=== PATIENT | female | born 1980 | race Caucasian/White ===

== ENCOUNTER 2018-01-01 07:08 | Inpatient (IN) | payer OTHER ==
[~2018-01-01] VITALS: Ht 175.3 cm; Wt 68.0 kg
[2018-01-01 07:13] VITALS: BP 129/78
--- NOTE | 2018-01-01 07:24 | NUR ---
PT AMBULATED TO BED 3
--- NOTE | 2018-01-01 07:25 | NUR ---
37/F BIB C/O FEELING REALLY TIRED X 3 WEEKS. PT STATES SHE SOMETIMES CAN'T EVEN GET OUT OF BED, SHE GET TIRED OF WALKING OUT OF THE CAR TO THE HOUSE. PT ALSO REPORTED CHEST DYSCOMFORT X 3 WEEKS. DENIES MED HX. PT TOOK TYLENOL LAST NIGHT. DENIES N/V/D; SKIN IS PINK/WARM/DRY; AAOX4 WITH EVEN AND STEADY GAIT; LUNGS CLEAR BL; HR TACHY 117/MINS AT THIS TIME. PT DENIES ANY FEVER, CP, SOB, OR COUGH AT THIS TIME; PATIENT STATES PAIN OF 0/10 AT THIS TIME. PATIENT POSITIONED FOR COMFORT; HOB ELEVATED; BEDRAILS UP X2; BED DOWN. ER MD MADE AWARE OF PT STATUS.
--- NOTE | 2018-01-01 07:44 | NUR ---
Patient being evaluated by DR MCKENZIE at bedside.
[2018-01-01] MEDS ORDERED: NACL 0.9% 1,000 ML IV ONE (07:50)
[2018-01-01] MEDS ORDERED: LORazepam 2 MG/ML VIAL IVP ONE (07:50)
[2018-01-01 08:08] LABS: BASOPHILS % (AUTO) 0.6 % (0.0-2.0); EOSINOPHILS % (AUTO) 0.3 % (0.0-4.0); HEMATOCRIT 23.4 % (36-48); LYMPHOCYTES # (AUTO) 0.6 K/uL (2.5-16.5); LYMPHOCYTES % (AUTO) 12.2 % (20.5-51.1); MEAN CORPUSCULAR HEMOGLOBIN 20 pg (27-31); MEAN CORPUSCULAR HGB CONC 30 g/dL (33-37); MEAN CORPUSCULAR VOLUME 67.9 fL (80-94); MONOCYTES # (AUTO) 0.7 K/uL (0.8-1.0); MONOCYTES % (AUTO) 13.8 % (1.7-9.3); NEUTROPHILS # (AUTO) 3.5 K/uL (1.8-7.7); NEUTROPHILS % (AUTO) 73.1 % (42.2-75.2); PLATELET COUNT (AUTO) 234 K/uL (140-450); RED BLOOD CELL COUNT(AUTO) 3.45 MIL/uL (4.20-5.40); WHITE BLOOD COUNT (AUTO) 4.7 K/uL (4.8-10.8)
[2018-01-01 08:21] LABS: BARBITURATE, URINE NEG. ng/ml (NEG <=200); BENZODIAZEPINE, URINE NEG. ng/mL (NEG <=200); CANNABINOID, URINE NEG. ng/mL (NEG <=50); COCAINE, URINE NEG. ng/mL (NEG <=300); OPIATE, URINE NEG. ng/mL (NEG <=2000); PHENCYCLIDINE SCREEN,URINE NEG. ng/mL (NEG <=25)
--- NOTE | 2018-01-01 08:29 | NUR ---
Emerita holm in [facility] - 01/01/18 at 0831 by MED1 LAB AT BEDSIDE.
--- NOTE | 2018-01-01 08:31 | NUR ---
X RAY AT BEDSIDE.
[2018-01-01 08:37] LABS: ANION GAP 15.2 (8-16); CARBON DIOXIDE 25.8 mmol/L (21-32); CHLORIDE 103 mmol/L (98-107); CREATININE 0.8 mg/dL (0.6-1.3); GFR ARICAN-AMERICAN 104 mL/min (>90); GLUCOSE 95 mg/dL (74-106); SODIUM SERUM 140 mmol/L (136-145); UREA NITROGEN, BLOOD 9 mg/dL (7-18)
[2018-01-01 08:51] LABS: ALBUMIN 3.5 g/dL (3.4-5.0); ASPARTATE AMINOTRANSFERASE 26 U/L (15-37); SALICYLATE 3.9 mg/dL (2.8-20.0); THYROID STIMULATING HORMONE 0.68 uIU/mL (0.34-3.74); TOTAL BILIRUBIN 0.2 mg/dL (0.0-1.0)
--- NOTE | 2018-01-01 08:52 | NUR ---
Patient appears to be SLEEPING comfortably in bed. Vital Signs within normal limits. Respirations even and unlabored.WILL CONTINUE TO MONITOR.
[2018-01-01 08:54] LABS: ACETAMINOPHEN < 0.5 ug/ml (10-30)
[2018-01-01] MEDS ORDERED: NACL 0.9% 1,000 ML IV SCH (09:33)
[2018-01-01] MEDS ORDERED: ACETAMINOPHEN 325 MG TAB PO PRN (09:35)
[2018-01-01] MEDS ORDERED: LORazepam 2 MG/ML VIAL IVP PRN (09:35)
[2018-01-01] MEDS ORDERED: ONDANSETRON 4 MG/2 ML VIAL IVP PRN (09:35)
--- NOTE | 2018-01-01 10:05 | NUR ---
RECEIVED REPORT ABOUT THE PT FROM CHARGE NURSE, RIOS, PT IS ON THE BED ASLEEP WITH A RT AC G. 20 ON SALINE LOCK , RESPIRATION EVEN AND NO SOB NOTED. VITAL SIGNS TAKEN AND IS WITHIN NORMAL LIMITS, SIDE RAILS ARE UP AND CALL LIGHT WITHIN REACH .WILL CONTINUE TO MONITOR PT.
--- NOTE | 2018-01-01 10:15 | NUR ---
Patient will be admitted to care of DR ANDRADE. Admited to MS. Will go to room 104B. Belongings list completed. Report to RIOS DREW
--- NOTE | 2018-01-01 10:54 | NUR ---
MRSA SWAB WAS DONE TO PT AND SAMPLE WAS SENT TO LAB.
--- NOTE | 2018-01-01 11:00 | NUR ---
PT'S IV FLUID WAS STARTED WITH NS AT 80ML/HR, INFUSING AT THE RT AC, INTACT AND PATENT. WILL MONITOR PT.
--- NOTE | 2018-01-01 12:00 | NUR ---
PT IS AWAKE AND IS HAVING HER LUNCH, NO SIGN OF DISTRESS NOTED. WILL MONITOR PT.
[2018-01-01] MEDS ORDERED: SODIUM FERRIC GLUCONATE 125 MG in NACL 0.9% 100 ML IV SCH (14:00)
--- NOTE | 2018-01-01 14:00 | NUR ---
ENDORSEMENT WAS RECEIVED FROM CAMPOS. PATIENT IS STABLE AT THIS TIME
--- NOTE | 2018-01-01 14:00 | NUR ---
PATIENT WAS AWAKE, ALERT. RESPIRATION EVEN, UNLABOR ON ROOM AIR. DENIED PAIN, SOB. NO DISTRESS NOTED AT THIS TIME. BLOOD TRANSFUSION WAS ORDERED BY DR. ANDRADE. CONSENT WAS OBTAINED AT BEDSIDE. PATIENT VERBALIZED UNDERSTANDING
--- NOTE | 2018-01-01 14:00 | NUR ---
ENDORSED PT TO AM NURSEJARAD FOR CONTINUITY OF CARE, PT IS STABLE AND AWAKE AT THIS BETH E.
--- NOTE | 2018-01-01 15:29 | NUR ---
BLOOD TRANSFUSION WAS STARTED PER ORDER. VS IS STABLE AT THIS TIME
[2018-01-01 16:00] VITALS: BP 138/86
--- NOTE | 2018-01-01 16:30 | NUR ---
PATIENT REQUESTED TO LEAVE AMA, STATED SHE NEEDS TO GO HOME WITH HER KID AND WILL COME BACK TO ER TOMORROW. EXPLAINED TO PATIENT THE RISK OF LEAVING AMA. PATIENT VERBALIZED UNDERSTANDING. AMA FORM WAS SIGNED. DR. ANDRADE WAS MADE AWARE
--- NOTE | 2018-01-01 16:50 | NUR ---
PATIENT REMOVED HER IV, AND LEFT THE UNIT. BLOOD TRANSFUSION WAS INCOMPLETE.
[2018-01-01] MEDS ORDERED: FERROUS SULFATE 325 MG TABEC PO SCH (17:00)
== END 2018-01-01 16:50 | disposition left against medical advice (07) | DRG 663 ==
LOC: MED 07:08 → MTU 09:53
PROVIDERS: ADMIT Hospitalist; ATTEND Hospitalist
DX: D64.9 Anemia, unspecified (principal); E61.1 Iron deficiency; F15.90 Other stimulant use, unspecified, uncomplicated; N92.0 Excessive and frequent menstruation with regular cycle; Z88.5 Allergy status to narcotic agent; Z88.2 Allergy status to sulfonamides; Z53.21 Procedure and treatment not carried out due to patient leaving prior to being seen by health care provider
CPT/HCPCS: 36415; 71045; 80053; 80305; 83540; 83880; 84443; 84484; 85025; 86886; 86900; 86901; 86920; 87081; 96361; 96374; 99285; G0480; G0482; J2060; J2405; J2916; J7030; Q0092

== ENCOUNTER 2018-05-20 13:46 | Observation (INO) | payer OTHER ==
[~2018-05-20] VITALS: Ht 175.3 cm; Wt 75.4 kg
[2018-05-20 14:15] VITALS: BP 170/105
--- NOTE | 2018-05-20 14:26 | NUR ---
AFTER PROVIDING URINE SPECIMEN, PT AMBULATES BACK TO THE LOBBY
--- NOTE | 2018-05-20 15:01 | NUR ---
PT TO ER BED 3
--- NOTE | 2018-05-20 15:02 | NUR ---
BIB SELF WITH SOB ON AMBULATION/EXERTION OVER 2 MONTHS WORSE YESTERDAY. PER PT HAVE EXTENDED MENSES RECENT LMP 04/2018 FOR 12 DAYS. PT WORK WITH DOGS WAS DX WITH ANEMIA ON 11/01/17 Addendum: 05/20/18 at 1753 by [email or web address] HOME MED: NONE
--- NOTE | 2018-05-20 15:02 | NUR ---
Note alta in EDM - 05/20/18 at 1712 by [facility] B SELF WITH SOB ON AMBULATION/EXERTION OVER 2 MONTHS WORSE YESTERDAY. PER PT HAVE EXTENDED MENSES RECENT LMP 04/2018 FOR 12 DAYS. 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
--- NOTE | 2018-05-20 15:58 | NUR ---
Patient appears to be SLEEPING comfortably in bed. Vital Signs within normal limits. Respirations even and unlabored.
--- NOTE | 2018-05-20 16:49 | NUR ---
LAB AT BEDSIDE
--- NOTE | 2018-05-20 16:50 | NUR ---
US AT BEDSIDE
[2018-05-20 17:05] LABS: BASOPHILS # (AUTO) 0.1 K/uL (0.00-0.22); EOSINOPHILS # (AUTO) 0.3 K/uL (0-0.4); LYMPHOCYTES # (AUTO) 1.4 K/uL (2.5-16.5); LYMPHOCYTES % (AUTO) 23.8 % (20.5-51.1); MEAN CORPUSCULAR HEMOGLOBIN 20 pg (27-31); MEAN CORPUSCULAR HGB CONC 30 g/dL (33-37); MEAN CORPUSCULAR VOLUME 66.1 fL (80-94); MONOCYTES # (AUTO) 0.4 K/uL (0.8-1.0); MONOCYTES % (AUTO) 7.2 % (1.7-9.3); NEUTROPHILS # (AUTO) 3.7 K/uL (1.8-7.7); PLATELET COUNT (AUTO) 306 K/uL (140-450); RED BLOOD CELL COUNT(AUTO) 2.87 MIL/uL (4.20-5.40); RED CELL DISTRIBUTION WIDTH 17.7 % (11.6-13.7); WHITE BLOOD COUNT (AUTO) 5.8 K/uL (4.8-10.8)
[2018-05-20 17:07] LABS: HEMOGLOBIN 5.6 g/dL (12.0-16.0)
[2018-05-20 17:17] LABS: ANION GAP 10.8 (8-16); CARBON DIOXIDE 27.1 mmol/L (21-32); CREATININE 0.7 mg/dL (0.6-1.3); POTASSIUM 3.9 mmol/L (3.5-5.1)
[2018-05-20 17:23] LABS: ALBUMIN 3.3 g/dL (3.4-5.0); TOTAL BILIRUBIN 0.2 mg/dL (0.0-1.0)
--- NOTE | 2018-05-20 18:30 | NUR ---
Pt arrived to room 119A from ER via gurney. Able to amb from gurney to bed with steady gait. Received report from [facility] ER nurse. Pt aaox4, well-groomed, well-nourished, no c/o discomfort at this time. Right ac iv intact & asymptomatic, flushed with NS 10ml. Pt oriented to room & unit, verbalize understanding & return demonstrate. Call light within reach.
--- NOTE | 2018-05-20 18:30 | NUR ---
Patient will be admitted to care of DR DR CODY. Admited to TELE. Will go to room 119A. Belongings list completed. Report to HERB SANTOYO.
[2018-05-20] MEDS ORDERED: ACETAMINOPHEN 325 MG TAB PO PRN (19:00)
[2018-05-20] MEDS ORDERED: ONDANSETRON 4 MG/2 ML VIAL IVP PRN (19:00)
--- NOTE | 2018-05-20 19:15 | NUR ---
Report given to pm nurse Laxmi.
--- NOTE | 2018-05-20 19:16 | NUR ---
RECEIVED BEDSIDE REPORT FROM DAY SHIFT NURSE HERB RN, PT STABLE, NO DISTRESS NOTED, IV TO R AC 18G PATENT, INTACT, SL, PT ON ROOM AIR, NO SOB, MRSA SWAB TAKEN, V/S STABLE, INITIAL ASSESSMENT DONE, ALL SAFETY PRECAUTION MET, CALL LIGHT WITHIN REACH, WILL CONTINUE TO MONITOR.
[2018-05-20 20:00] VITALS: BP 124/69
--- NOTE | 2018-05-20 20:20 | NUR ---
BLOOD TRANSFUSION STARTED, PT IN STABLE CONDITION, NO DISTRESS NOTED, TOLERATED WELL, WILL CONTINUE TO MONITOR.
--- NOTE | 2018-05-20 20:30 | NUR ---
TALKED TO DR. XIONG REGARDING PT REQUESTING SLEEPING MEDICATION, STATED TO ORDER AMBIEN 5MG PO PRN INSOMNIA HS, WILL PUT IN ORDER AND CONTINUE WITH ORDERS.
[2018-05-20] MEDS ORDERED: ZOLPIDEM 5 MG TAB PO PRN (20:50)
--- NOTE | 2018-05-20 23:20 | NUR ---
FIRST UNIT BLOOD TRANSFUSION COMPLETED, PT TOLERATED WELL, NO DISTRESS NOTED, CALL LIGHT WITHIN REACH, WILL CONTINUE TO MONITOR.
--- NOTE | 2018-05-20 23:50 | NUR ---
SECOND UNIT BLOOD STARTED, PT TOLERATED WELL, NO DISTRESS NOTED, CALL LIGHT WITHIN REACH, WILL CONTINUE TO MONITOR.
[2018-05-21] VITALS: BP 131/85
--- NOTE | 2018-05-21 02:50 | NUR ---
BLOOD TRANSFUSION COMPLETED, PT TOLERATED WELL, NO DISTRESS NOTED, CALL LIGHT WITHIN REACH WILL CONTINUE TO MONITOR.
[2018-05-21 04:00] VITALS: BP 131/82
--- NOTE | 2018-05-21 04:10 | NUR ---
CHECKED ON PT, PT AWAKE, AMBULATED TO RESTROOM AND BACK TO BED, V/S TAKEN, WITHIN PT BASELINE, LEFT RESTING, NO DISTRESS NOTED, CALL LIGHT WITHIN REACH, WILL CONTINUE TO MONITOR.
--- NOTE | 2018-05-21 05:30 | NUR ---
PT STATED FEELING BETTER, AND WANTS TO GO HOME, PT TALKED TO DATACAP DEVELOPER IZZY, AND STATED SHE WANTS TO GO HOME RIGHT NOW.
--- NOTE | 2018-05-21 05:35 | NUR ---
TALKED TO DR. PEREZ REGARDING PT IS SIGNING AMA, STATED UNDERSTANDING.
--- NOTE | 2018-05-21 05:35 | NUR ---
PT LEFT UNIT IN STABLE CONDITION, NO DISTRESS NOTED, IV TAKEN OUT CATH INTACT, WRIST BANDS TAKEN OFF, EXPLAINED TO PT REGARDING RISK OF LEAVING AMA, PT STATED UNDERSTANDING. Addendum: 05/21/18 at 0544 by Laxmi Joya RN ALL BELONGINGS WITH PT.
[2018-05-21 06:21] LABS: BASOPHILS % (AUTO) 0.5 % (0.0-2.0); EOSINOPHILS # (AUTO) 0.4 K/uL (0-0.4); HEMATOCRIT 26.9 % (36-48); HEMOGLOBIN 8.5 g/dL (12.0-16.0); LYMPHOCYTES # (AUTO) 1.4 K/uL (2.5-16.5); LYMPHOCYTES % (AUTO) 19.6 % (20.5-51.1); MEAN CORPUSCULAR HEMOGLOBIN 23 pg (27-31); MEAN CORPUSCULAR HGB CONC 32 g/dL (33-37); MEAN CORPUSCULAR VOLUME 71.7 fL (80-94); MONOCYTES # (AUTO) 0.7 K/uL (0.8-1.0); MONOCYTES % (AUTO) 9.9 % (1.7-9.3); NEUTROPHILS # (AUTO) 4.7 K/uL (1.8-7.7); PLATELET COUNT (AUTO) 293 K/uL (140-450); RED BLOOD CELL COUNT(AUTO) 3.75 MIL/uL (4.20-5.40); RED CELL DISTRIBUTION WIDTH 21.3 % (11.6-13.7); WHITE BLOOD COUNT (AUTO) 7.3 K/uL (4.8-10.8)
[2018-05-21 06:23] LABS: ALBUMIN 3.2 g/dL (3.4-5.0); ANION GAP 12.2 (8-16); CARBON DIOXIDE 28.2 mmol/L (21-32); CREATININE 0.7 mg/dL (0.6-1.3); POTASSIUM 4.4 mmol/L (3.5-5.1); TOTAL BILIRUBIN 0.3 mg/dL (0.0-1.0)
== END 2018-05-21 05:36 | disposition left against medical advice (07) ==
LOC: MED 13:46 → MTU 17:40 → INTOOBSV 17:40
PROVIDERS: ADMIT Internal Medicine; ATTEND Internal Medicine
DX: D50.0 Iron deficiency anemia secondary to blood loss (chronic) (principal); N92.0 Excessive and frequent menstruation with regular cycle; D25.9 Leiomyoma of uterus, unspecified
CPT/HCPCS: 36415; 76830; 80053; 84702; 85025; 85610; 86886; 86900; 86901; 86920; 87081; 99284; G0378; J7030; P9016; Q0092

== ENCOUNTER 2018-06-05 14:48 | Inpatient (IN) | payer OTHER ==
[~2018-06-05] VITALS: Ht 175.3 cm; Wt 65.8 kg
[2018-06-05 14:57] VITALS: BP 118/78
--- NOTE | 2018-06-05 15:00 | NUR ---
BIB BOYFRIEND. AAOX4. C/O VAGINAL BLEEDING X5 DAYS. PT REPORTS LARGE CLOTS. PT REPORTS GOING THROUGH 1 PAD Q30 MIN. PT REPORTS PAIN WHEN CLOTS COME. PT REPORTS CRAMPING LLQ ABD PAIN AT 6/10. PT REPORTS FATIGUE, DIZZINESS AND SOB. DENIES N/V/D OR FEVER. PT REPORTS GETTING BLOOD TRANSFUSION AT [facility] LAST MONTH. HOB UP. BED SIDE RAILS UP X1. ON LOW BED POSITION, LOCKED. ER MADE AWARE OF PT STATUS.
[2018-06-05 15:31] LABS: BASOPHILS % (AUTO) 0.4 % (0.0-2.0); EOSINOPHILS # (AUTO) 0.2 K/uL (0-0.4); EOSINOPHILS % (AUTO) 2.5 % (0.0-4.0); LYMPHOCYTES # (AUTO) 1.4 K/uL (2.5-16.5); MEAN CORPUSCULAR HEMOGLOBIN 23 pg (27-31); MEAN CORPUSCULAR HGB CONC 31 g/dL (33-37); MEAN CORPUSCULAR VOLUME 72.3 fL (80-94); MONOCYTES # (AUTO) 0.7 K/uL (0.8-1.0); NEUTROPHILS # (AUTO) 3.9 K/uL (1.8-7.7); NEUTROPHILS % (AUTO) 63.1 % (42.2-75.2); PLATELET COUNT (AUTO) 325 K/uL (140-450); RED BLOOD CELL COUNT(AUTO) 2.76 MIL/uL (4.20-5.40); RED CELL DISTRIBUTION WIDTH 23.9 % (11.6-13.7); WHITE BLOOD COUNT (AUTO) 6.1 K/uL (4.8-10.8)
[2018-06-05 15:36] LABS: HEMOGLOBIN 6.2 g/dL (12.0-16.0)
[2018-06-05 15:37] LABS: APPEARANCE,URINE SL CLOUDY (CLEAR); BILIRUBIN,URINE NEGATIVE (NEGATIVE); BLOOD, URINE 3+ (NEGATIVE); COLOR,URINE RED (YELLOW); LEUKOCYTE ESTERASE ,URINE TRACE (NEGATIVE); NITRITE, URINE POSITIVE (NEGATIVE); UGLUCOSE NEGATIVE (NEGATIVE)
--- NOTE | 2018-06-05 15:38 | NUR ---
CRITICAL LAB VALUE: HGB: 6.2, HCT: 20 FROM NESTOR, JUSTOWRITER OPERATOR. DR COLLIER NOTIFIED.
--- NOTE | 2018-06-05 15:40 | NUR ---
DR COLLIER AT BEDSIDE FOR PT EVALUATION
[2018-06-05 15:44] LABS: RBC,URINE TOO NUMEROUS TO COUN /HPF (0-5)
[2018-06-05 15:45] LABS: WBC,URINE 0-5 /HPF (0-5)
[2018-06-05 16:03] LABS: PROTHROMBIN TIME 9.7 secs (10.8-13.4)
[2018-06-05] MEDS ORDERED: LORazepam 2 MG/ML VIAL IVP PRN (16:05)
[2018-06-05] MEDS ORDERED: ALBUTEROL 0.083% 2.5 MG/3 ML NEBU IH PRN (16:05)
--- NOTE | 2018-06-05 16:35 | NUR ---
RECEIVED REPORT FROM MELANIE SIMPSON RN. PT IS AAOX4, AMBULATORY WITH RIGHT AC 20G. PT ON RA. SKIN INTACT. PT COMPLAINING OF HEAVY VAGINAL BLEEDING FROM MENSTRUAL PERIOD. AWAITING PACKED RBC'S FOR BLOOD TRANSFUSION. NO OTHER COMPLAINTS AT THIS TIME. PT IN STABLE CONDITION. MRSA SWAB TAKEN. PT ORIENTED TO UNIT AND ROOM. CALL LIGHT WITHIN REACH. BED IN LOW POSITION. WILL CONTINUE TO MONITOR PT FREQUENTLY.
--- NOTE | 2018-06-05 16:35 | NUR ---
Patient will be admitted to care of Dr Palacio. Admited to Med Surg. Will go to room 104 A. Belongings list completed. Report to YARELIS Diamond.
--- NOTE | 2018-06-05 18:10 | NUR ---
BLOOD TRANSFUSION STARTED ON PT. PT VITAL SIGNS FOLLOWS:TEMP-98.2, HR-103, BP-113/64, RR-16, O2 SAT-99%. NO COMPLAINTS OF PAIN AT THIS TIME. WILL REMAIN AT PT BEDSIDE FOR 3OMINS-1HR.
--- NOTE | 2018-06-05 19:28 | NUR ---
ENDORSED PT TO SLABBER LIGHT FOR CONTINUITY OF CARE. PT IN STABLE CONDITION.
--- NOTE | 2018-06-05 19:29 | NUR ---
RECEIVED PATIENT FROM DAY SHIFT NURSE AT BEDSIDE. PATIENT IS STABLE CONDITION. CURRENTLY RECEIVING BLOOD TRANSFUSION SINCE 1809. NO C/O PAIN, NO SOB, NO FEVER NOTED. AAOX4. IV 20G ON R AC AND SITE INTACT, PATENT, AND FLUSH WELL. SKIN INTACT. NO OPEN WOUND. BED IN LOW POSITION. CALL LIGHT WITHIN REACH. ALL NEED ARE MET AT THIS TIME. WILL CONTINUE TO MONITOR.
[2018-06-05 20:00] VITALS: BP 128/74
[2018-06-05] MEDS ORDERED: IBUPROFEN 800 MG TAB PO PRN (20:10)
--- NOTE | 2018-06-05 20:22 | NUR ---
PT C/O ABD PAIN 07/29. IBUPROFEN GIVEN PO. PT TOLERATED WELL.
--- NOTE | 2018-06-05 21:07 | NUR ---
RECEIVED PATIENT ON ROOM AIR, PULSE OX SAT 97%. PATIENT DENIES ANY SHORTNESS OF BREATH. BREATH SOUNDS CLEAR. PRN BREATHING TREATMENT NOT GIVEN; HHN NOT INDICATED AT THIS TIME. NO RESPIRATORY DISTRESS NOTED AT THIS TIME. WILL CONTINUE TO MONITOR.
--- NOTE | 2018-06-05 21:30 | NUR ---
BLOOD TRANSFUSION 1 UNIT PRBC COMPLETED. PT STABLE CONDITION. NO S/S OF POST TRANSFUSION REACTION NOTED. PT CURRENTLY C/O 04/28 ABD PAIN. MEDICATION ALREADY GIVEN.
--- NOTE | 2018-06-05 21:55 | NUR ---
SET UP TUBING WITH NS FOR 2ND UNIT PRBC AND WILL WORKERS COMPENSATION LEGAL SECRETARY BLOOD.
--- NOTE | 2018-06-05 22:05 | NUR ---
STARTING 2ND UNIT OF BLOOD 2 NURSES VERIFIED COMPLETED. PT'S VITAL SIGN STABLE. TEMP:98.4, P:103, R:16, BP:108/76, PAIN 6/10 ON ABD.
[2018-06-06] VITALS: BP 130/79
[2018-06-06] MEDS: NACL 0.9% 1,000 ML IV SCH ×2 (01:44→09:53)
--- NOTE | 2018-06-06 01:44 | NUR ---
FINISHED 2ND UNIT OF BLOOD. PT'S VITAL SIGN STABLE. TEMP:98.6F, P:97, O2:99%, R:18, BP:135/90, PAIN 0/10. NO ADVERSE REACTION NOTED. RUNNING NS @125ML/H ORDERED. WILL CONTINUE TO MONITOR.
--- NOTE | 2018-06-06 03:25 | NUR ---
PT SLEEPING COMFORTABLY IN BED. NO S/S OF DISTRESS AFTER BLOOD TRANSFUSION. NO COMPLAINTS OF PAIN. NO SOB. AFEBRILE. WILL CONTINUE TO MONITOR.
--- NOTE | 2018-06-06 05:50 | NUR ---
EKG DONE FOR PREOP. PT AWAKE AND ALERT. NO S/S OF DISTRESS NOTED. WILL CONTINUE TO MONITOR.
[2018-06-06 06:50] LABS: ALBUMIN 2.6 g/dL (3.4-5.0); ANION GAP 11.1 (8-16); CARBON DIOXIDE 24.9 mmol/L (21-32); CREATININE 0.6 mg/dL (0.6-1.3); MAGNESIUM 2.2 mg/dL (1.8-2.4); TOTAL BILIRUBIN 0.3 mg/dL (0.0-1.0)
--- NOTE | 2018-06-06 07:04 | NUR ---
REPORT GIVEN TO AM NURSE AT BEDSIDE. PT IN STABLE CONDITION.
--- NOTE | 2018-06-06 07:05 | NUR ---
RECEIVED BEDSIDE REPORT FROM YARELIS GOODWIN, PT STABLE, SLEEPING, BUT EASILY AROUSABLE. NO SIGNS OF DISTRESS NOTED. NPO IN PLACE. NO REDNESS, SWELLING, OR INFLAMMATION NOTED ON IV SITE. CALL [place] WITHIN REACH. BED IN LOWEST POSITION. SAFETY MEASURES IN PLACE. PLAN OF CARE REVIEWED.
[2018-06-06 08:00] VITALS: BP 134/87
--- NOTE | 2018-06-06 08:16 | NUR ---
PATIENT HAS BEEN SCREENED AND CATEGORIZED MODERATE NUTRITION RISK. PATIENT WILL BE SEEN WITHIN 3-5 DAYS OF ADMISSION. 06/08/18ANGELICA LÓPEZ RD
[2018-06-06 09:22] LABS: BASOPHILS % (AUTO) 0.4 % (0.0-2.0); EOSINOPHILS # (AUTO) 0.3 K/uL (0-0.4); EOSINOPHILS % (AUTO) 3.8 % (0.0-4.0); HEMATOCRIT 25.9 % (36-48); HEMOGLOBIN 8.3 g/dL (12.0-16.0); LYMPHOCYTES # (AUTO) 1.6 K/uL (2.5-16.5); MEAN CORPUSCULAR HEMOGLOBIN 25 pg (27-31); MEAN CORPUSCULAR HGB CONC 32 g/dL (33-37); MEAN CORPUSCULAR VOLUME 77.4 fL (80-94); MONOCYTES # (AUTO) 0.7 K/uL (0.8-1.0); MONOCYTES % (AUTO) 9.6 % (1.7-9.3); NEUTROPHILS # (AUTO) 4.3 K/uL (1.8-7.7); NEUTROPHILS % (AUTO) 63.2 % (42.2-75.2); PLATELET COUNT (AUTO) 294 K/uL (140-450); RED BLOOD CELL COUNT(AUTO) 3.34 MIL/uL (4.20-5.40); RED CELL DISTRIBUTION WIDTH 23.5 % (11.6-13.7); WHITE BLOOD COUNT (AUTO) 6.8 K/uL (4.8-10.8)
--- NOTE | 2018-06-06 09:56 | NUR ---
IV BAG CHANGED, PT INFORMED OF SURGERY TIME PER OR NURSES.
--- NOTE | 2018-06-06 10:20 | NUR ---
DISCONNECTED PT FROM IV POLE TO USE THE BATHROOM PER PT REQUEST, PT AMBULATED WITH STEADY GAIT TO THE BATHROOM.
--- NOTE | 2018-06-06 10:55 | NUR ---
PT ELOPED FROM THE HOSPITAL WITH IV STILL INTACT. STAFF AND SECURITY LOOKED AROUND THE HOSPITAL PREMISES FOR PT, PT NOT IN SIGHT. RECEIVED CALL FROM PT'S MOTHER ASKING WHERE PT IS, MADE PT'S MOTHER AWARE THAT PT ELOPED. ELVIRA VILLAFUERTE WAS CALLED TO REPORT PT ELOPED. ALL INFORMATION GIVEN TO ELVIRA VILLAFUERTE.
--- NOTE | 2018-06-06 11:40 | NUR ---
PT CAME BACK IN THE HOSPITAL LOBBY, YARELIS FIORE TOOK OUT IV, CATHETER TIP INTACT, BLEEDING CONTROLLED. ENCOURAGED PT TO GO BACK TO THE ER.
== END 2018-06-06 10:55 | disposition left against medical advice (07) | DRG 663 ==
LOC: MED 14:48 → MTU 16:15 → OBSVTOIN 06-06 01:44
PROVIDERS: ADMIT Internal Medicine Pulmonary Disease; ATTEND Internal Medicine Pulmonary Disease
PROC: 30233N1 Transfusion of Nonautologous Red Blood Cells into Peripheral Vein, Percutaneous Approach (ICD-10-PCS; principal; 2018-06-05)
DX: D64.9 Anemia, unspecified (principal); F17.210 Nicotine dependence, cigarettes, uncomplicated; N93.9 Abnormal uterine and vaginal bleeding, unspecified; J45.909 Unspecified asthma, uncomplicated; Z88.5 Allergy status to narcotic agent; Z88.2 Allergy status to sulfonamides
CPT/HCPCS: 99285; G0378; 36415; 71045; 80053; 81001; 81025; 83735; 85025; 85610; 85730; 86886; 86900; 86901; 86920; 87081; 93005; J7030; J7613; P9016; Q0092

== ENCOUNTER 2018-06-06 12:11 | Emergency (ER) | payer SELFPAY ==
--- NOTE | 2018-06-06 12:28 | NUR ---
LEFT W/O SEEN BY
== END 2018-06-06 12:28 | disposition left against medical advice (07) ==
LOC: MED 12:11
DX: Z53.21 Procedure and treatment not carried out due to patient leaving prior to being seen by health care provider (principal)

== ENCOUNTER 2018-07-15 20:45 | Inpatient (IN) | payer OTHER ==
[~2018-07-15] VITALS: Ht 175.3 cm; Wt 65.8 kg
[2018-07-15 20:53] VITALS: BP 124/71
--- NOTE | 2018-07-15 21:02 | NUR ---
TO LOBBY AWAITING BED.
[2018-07-15 21:29] LABS: BASOPHILS % (AUTO) 0.7 % (0.0-2.0); EOSINOPHILS # (AUTO) 0.1 K/uL (0-0.4); EOSINOPHILS % (AUTO) 2.2 % (0.0-4.0); LYMPHOCYTES # (AUTO) 1.4 K/uL (2.5-16.5); LYMPHOCYTES % (AUTO) 21.2 % (20.5-51.1); MEAN CORPUSCULAR HEMOGLOBIN 22 pg (27-31); MEAN CORPUSCULAR HGB CONC 31 g/dL (33-37); MEAN CORPUSCULAR VOLUME 70.7 fL (80-94); MONOCYTES # (AUTO) 0.6 K/uL (0.8-1.0); MONOCYTES % (AUTO) 9.2 % (1.7-9.3); NEUTROPHILS # (AUTO) 4.3 K/uL (1.8-7.7); NEUTROPHILS % (AUTO) 66.7 % (42.2-75.2); PLATELET COUNT (AUTO) 340 K/uL (140-450); RED BLOOD CELL COUNT(AUTO) 2.47 MIL/uL (4.20-5.40); RED CELL DISTRIBUTION WIDTH 19.1 % (11.6-13.7); WHITE BLOOD COUNT (AUTO) 6.4 K/uL (4.8-10.8)
--- NOTE | 2018-07-15 21:35 | NUR ---
PT TAKEN TO BED 8
[2018-07-15 21:39] LABS: HEMATOCRIT 17.5 % (36-48); HEMOGLOBIN 5.4 g/dL (12.0-16.0)
[2018-07-15 21:43] LABS: ANION GAP 14.8 (8-16); CARBON DIOXIDE 24.6 mmol/L (21-32); CREATININE 0.9 mg/dL (0.6-1.3); POTASSIUM 3.4 mmol/L (3.5-5.1)
--- NOTE | 2018-07-15 21:45 | NUR ---
PT TO ED WITH C/O VAGINAL BLEEDING X 17 DAYS. PT REPORTING WEAKNESS, DIZZINESS, AND LETHARGY. PT REPORTS HEAVY BLEEDING IN VAGINAL AREA THAT IS INTERMITTENT. PT IS ABLE TO ANSWER QUESTIONS APPROPRIATLEY. PT PLACED INTO BED, PENDING MD BERNARDO.
[2018-07-15 21:48] LABS: ALBUMIN 3.4 g/dL (3.4-5.0); TOTAL BILIRUBIN 0.2 mg/dL (0.0-1.0)
[2018-07-15] MEDS ORDERED: NACL 0.9% 1,000 ML IV ONE (22:55)
[2018-07-15 23:20] LABS: APPEARANCE,URINE SL CLOUDY (CLEAR); BILIRUBIN,URINE NEGATIVE (NEGATIVE); BLOOD, URINE TRACE-L (NEGATIVE); COLOR,URINE YELLOW (YELLOW); LEUKOCYTE ESTERASE ,URINE 1+ (NEGATIVE); NITRITE, URINE NEGATIVE (NEGATIVE); UGLUCOSE NEGATIVE (NEGATIVE)
[2018-07-15] MEDS ORDERED: ONDANSETRON 4 MG/2 ML VIAL IVP PRN (23:25)
[2018-07-15] MEDS ORDERED: HYDROcodone/APAP 5/325 MG 1 TAB TAB PO PRN (23:25)
[2018-07-15] MEDS ORDERED: ACETAMINOPHEN 325 MG TAB PO PRN (23:25)
[2018-07-15] MEDS ORDERED: ALBUTEROL 0.083% 2.5 MG/3 ML NEBU INH PRN (23:25)
[2018-07-15 23:27] LABS: BARBITURATE, URINE NEG. ng/ml (NEG <=200); BENZODIAZEPINE, URINE NEG. ng/mL (NEG <=200); CANNABINOID, URINE NEG. ng/mL (NEG <=50); COCAINE, URINE NEG. ng/mL (NEG <=300); OPIATE, URINE NEG. ng/mL (NEG <=2000); PHENCYCLIDINE SCREEN,URINE NEG. ng/mL (NEG <=25)
[2018-07-15 23:36] LABS: RBC,URINE 0-5 /HPF (0-5); WBC,URINE 16-25 (MOD) /HPF (0-5)
--- NOTE | 2018-07-15 23:44 | NUR ---
Patient will be admitted to care of Dr. Perez. Admited to Tele, transferred on [facility] bed with cardiac monitoring. Patient transferred to room 111-B. Belongings list completed. Report given to Leonard SANTOYO.
--- NOTE | 2018-07-15 23:50 | NUR ---
ADMITTED THIS 37 YEAR OLD FEMALE FROM ER PER MIRACLE WITH CC OF VAGINAL BLEEDING X17 DAYS, AMBULATED TO BED WITH STEADY GAIT, ASSESSMENT DONE, VITAL SIGNS TAKEN,BP STABLE, ST ON TELE, DENIES PAIN, NO SOB NOTED, ORIENTED TO ROOM AND CALL LIGHT, PLAN OF CARE DISCUSSED, PT AWARE FOR BLOOD TRANSFUSION 2 UNITS, CONSENT SIGNED WHILE IN THE ER, STATED STILL HAVING MODERATE BLEEDING WITH CLOTS, ALL NEEDS ATTENDED, CALL LIGHT WITHIN REACH.
[2018-07-16 00:10] VITALS: BP 124/72
--- NOTE | 2018-07-16 01:30 | NUR ---
PT COMPLAINING OF ANXIETY, PAGED DR PEREZ, AWAITING CALL BACK, PT AMBULATED TO BR, CHANGED SANITARY PAD, STATED MODERATE BLEEDING NOTED, AWAITING PRBC TO BE AVAILABLE, MONITORED CLOSELY.
--- NOTE | 2018-07-16 02:00 | NUR ---
DR PEREZ HASN'T CALLED BACK, RE-PAGED DR PEREZ VIA EXCHANGED, AWAITING CALL BACK.
--- NOTE | 2018-07-16 02:35 | NUR ---
DR PEREZ HASN'T CALLED BACK, PT SEEN SLEEPING, NO SIGNS OF DISTRESS, WILL RE-PAGED IF PT COMPLAINS AGAIN OF ANXIETY, MONITORED CLOSELY.
--- NOTE | 2018-07-16 03:40 | NUR ---
LIME SLAKER SVEN CALLED LAB AND TALKED TO RAY TO FOLLOW UP BLOOD, STATED BLOOD WAS SENT TO [facility] FOR CROSSMATCHING.
[2018-07-16 04:20] VITALS: BP 116/69
--- NOTE | 2018-07-16 04:20 | NUR ---
PT SLEEPING, EASILY AROUSABLE, VITAL SIGNS TAKEN,ST-114, ASYMPTOMATIC, DENIES ANY PAIN, NO SOB NOTED, AWAITING FOR PRBC TO BE READY, MONITORED CLOSELY.
--- NOTE | 2018-07-16 05:27 | NUR ---
TALKED TO PEBBLES AT BLOOD BANK TO FOLLOW UP BLOOD AVAILABILITY, STILL WAITING FROM [facility] TO FINISH CROSSMATCHING, PEBBLES WILL CALL WHEN BLOOD IS READY, EXPLAINED THE SITUATION TO THE PT, VERBALIZED UNDERSTANDING.
--- NOTE | 2018-07-16 07:16 | NUR ---
PT SLEEPING, NO SIGNS OF DISTRESS, REPORT GIVEN TO RN JETHRO FOR CONTINUITY OF CARE.
--- NOTE | 2018-07-16 07:23 | NUR ---
REPORT RECEIVED FROM HEAD AND NECK SURGEON NURSE REMY, PT SLEEPING QUIETLY IN NO ACUTE DISTRESS, AROUSES EASILY BY VOICE, NO C/O PAIN, RESP EVEN UNLABORED, SKIN WARM DRY COLOR WNL, PLAN OF CARE REVIEWED, NO IMMEDIATE NEEDS AT THIS TIME, WILL CONTINUE TO MONITOR.
[2018-07-16] MEDS ORDERED: FERROUS GLUCONATE 324 MG TAB PO SCH (08:00)
[2018-07-16 08:05] VITALS: BP 134/88
--- NOTE | 2018-07-16 08:15 | NUR ---
1ST UNIT OF BLOOD STARTED, VITALS STABLE, PT AWARE OF POTENTIAL REACTIONS TO REPORT, BLOOD VERIFIED WITH 2 RNS, WILL CONTINUE TO MONITOR
--- NOTE | 2018-07-16 08:29 | NUR ---
PATIENT HAS BEEN SCREENED AND CATEGORIZED MODERATE NUTRITION RISK. PATIENT WILL BE SEEN WITHIN 3-5 DAYS OF ADMISSION. 07/18/18ANGELICA L[address]PEZ RD
--- NOTE | 2018-07-16 08:30 | NUR ---
NO S/S OF REACTIONS NOTED, PT RESTING COMFORTABLY, IV SITE WNL, WILL CONTINUE TO MONTIOR.
[2018-07-16 11:15] VITALS: BP 142/56
--- NOTE | 2018-07-16 11:20 | NUR ---
1ST UNIT PRBC COMPLETED, PT RAEANN WELL, NO S/S OF REACTIONS NOTED, VITALS STABLE, WILL TRANSFUSE SECOND UNIT.
[2018-07-16 12:00] VITALS: BP 132/86
--- NOTE | 2018-07-16 12:00 | NUR ---
SECOND UNIT OF PRBC STARTED, VERIFIED WITH 2ROTONIEL, RIOS AND MYSELF, DREA MONACO, PT SITTING UP LAUGHING TALKING WITH FAMILY AND FRIENDS, PT AWARE OF S/S OF REACTIONS TO REPORT, WILL CONT TO MONITOR.
--- NOTE | 2018-07-16 12:45 | NUR ---
PT WANTS TO DC HOME SOON THE SECOND UNIT OF PRBC TRANSFUSION IS COMPLETED, PT REFUSED US PELVIS, STATING SHE HAD IT DONE LAST MONTH, WILL PAGE DR CODY REGARDING DISCHARGE TIMING AND REFUSED US.
--- NOTE | 2018-07-16 13:37 | NUR ---
DR EMILIANO DOVER FOR CONSULT
--- NOTE | 2018-07-16 13:43 | NUR ---
NO S/S OF TRANSFUSION REACTIONS, PT SLEEPING QUIETLY IN NAD.
--- NOTE | 2018-07-16 13:43 | NUR ---
DR CUMMINGS CALLED BACK, NOTIFIED OF CONSULT.
--- NOTE | 2018-07-16 13:48 | NUR ---
PT MADE AWARE OF DR MURGUIA RECOMMENDATION TO STAY IN THE HOSPITAL FOR LASTING MACHINE OPERATOR CONSULT, PELVIC ULTRASOUND, REPEAT BLOOD TEST AFTER TRANSFUSION AND FURTHER MONITORING OF VAGINAL BLEEDING, PT ADAMANT OF LEAVING SOON THE TRANSFUSION IS DONE, PT STATES "I WILL FOLLOW UP WITH MY DOCTOR AND FOLLOW UP WITH LASTING MACHINE OPERATOR WHEN I GET HOME". PT'S SISTER ALSO ENCOURAGED PT TO STAY FOR FURTHER EVALUATIONS, BUT PT REFUSES.
--- NOTE | 2018-07-16 15:15 | NUR ---
TRANSFUSION COMPLETED, NO S/S OF REACTIONS NOTED, PT STATES "I FEEL BETTER, I CAN BREATHE WHEN I WALK TO BATHROOM" PT STATES VAGINAL BLEEDING IS LESS NOW, ONLY CHANGED ONE PAD TODAY SINCE THIS AM. PT WANTS TO SIGN AMA FORM AND LEAVE. WILL PAGE DR CODY.
--- NOTE | 2018-07-16 15:30 | NUR ---
PHLEBOTOMY AT BEDSIDE FOR BLOOD DRAW, IV DC'D, CATH TIP INTACT, BLEEDING CONTORLLED, PT SIGNED AMA FORM, PT UP AMBULATING WITH STEADY GAIT, LEFT HOSPITAL WITH .
[2018-07-16 15:46] LABS: BASOPHILS % (AUTO) 0.5 % (0.0-2.0); EOSINOPHILS # (AUTO) 0.2 K/uL (0-0.4); EOSINOPHILS % (AUTO) 2.3 % (0.0-4.0); HEMATOCRIT 24.4 % (36-48); HEMOGLOBIN 7.7 g/dL (12.0-16.0); LYMPHOCYTES # (AUTO) 1.2 K/uL (2.5-16.5); LYMPHOCYTES % (AUTO) 17.8 % (20.5-51.1); MEAN CORPUSCULAR HEMOGLOBIN 23 pg (27-31); MEAN CORPUSCULAR HGB CONC 32 g/dL (33-37); MEAN CORPUSCULAR VOLUME 74.3 fL (80-94); MONOCYTES # (AUTO) 0.7 K/uL (0.8-1.0); MONOCYTES % (AUTO) 9.6 % (1.7-9.3); NEUTROPHILS # (AUTO) 4.8 K/uL (1.8-7.7); NEUTROPHILS % (AUTO) 69.8 % (42.2-75.2); PLATELET COUNT (AUTO) 334 K/uL (140-450); RED BLOOD CELL COUNT(AUTO) 3.28 MIL/uL (4.20-5.40); RED CELL DISTRIBUTION WIDTH 19.6 % (11.6-13.7); WHITE BLOOD COUNT (AUTO) 6.9 K/uL (4.8-10.8)
--- NOTE | 2018-07-16 16:00 | NUR ---
DR CODY CALLED BACK, MADE AWARE THAT PATIENT LEFT AMA.
[2018-07-16 16:01] LABS: ANION GAP 14.3 (8-16); CARBON DIOXIDE 23.9 mmol/L (21-32); CREATININE 0.7 mg/dL (0.6-1.3); POTASSIUM 4.2 mmol/L (3.5-5.1)
[2018-07-16 16:05] LABS: MAGNESIUM 2.1 mg/dL (1.8-2.4); PHOSPHORUS 3.3 mg/dL (2.5-4.9)
--- NOTE | 2018-07-17 14:03 | NUR ---
-CAROLYN SPOKE WITH TIARRA ( CM @ [facility]) @ REGARDING FOLLOW UP APPOINTMENT WITH PCP. PER TIARRA, PATIENT'S PREVIOUS PCP Dr. PRINCESS BAIRES IS NOT ACCEPTING [facility]. PER TIARRA, PATIENT CAN CALL [facility] TO MAKE THE CHANGE. FOLLOW MIRIAM VILLARREAL, DR. ENEDINA WEAVER, AND EVIN WORKMAN. CONTACTED PATIENT Addendum: 07/17/18 at 1412 by Prisca Barker CM -CM SPOKE WITH TIARRA ( CM @ [facility]) @ REGARDING FOLLOW UP APPOINTMENT WITH PCP. PER TIARRA, PATIENT'S PREVIOUS PCP Dr. PRINCESS BAIRES IS NOT ACCEPTING [facility]. PER TIARRA, PATIENT CAN CALL IE TO MAKE THE CHANGE. FOLLOW MIRIAM VILLARREAL, DR. ENEDINA WEAVER, AND EVIN WORKMAN. CONTACTED PATIENT AND INSTRUCTED HER TO CALL [facility] TO CHANGE PCP. PATIENT STATED SHE WILL CALL [facility].
== END 2018-07-16 15:30 | disposition left against medical advice (07) | DRG 532 ==
LOC: MED 20:45 → MTU 23:23
PROVIDERS: ADMIT Internal Medicine; ATTEND Internal Medicine
PROC: 30233N1 Transfusion of Nonautologous Red Blood Cells into Peripheral Vein, Percutaneous Approach (ICD-10-PCS; principal; 2018-07-16)
DX: D25.9 Leiomyoma of uterus, unspecified (principal); D50.0 Iron deficiency anemia secondary to blood loss (chronic); F15.10 Other stimulant abuse, uncomplicated; E87.6 Hypokalemia; N39.0 Urinary tract infection, site not specified; N92.0 Excessive and frequent menstruation with regular cycle; Z53.21 Procedure and treatment not carried out due to patient leaving prior to being seen by health care provider
CPT/HCPCS: 36415; 80048; 80053; 80305; 81001; 83735; 84100; 85025; 86886; 86900; 86901; 86920; 87081; 87086; 87186; 96360; 99285; J7030; P9016

== ENCOUNTER 2018-08-05 22:41 | Observation (INO) | payer OTHER ==
[~2018-08-05] VITALS: Ht 175.3 cm; Wt 68.0 kg
[2018-08-05 22:49] VITALS: BP 125/69
--- NOTE | 2018-08-05 22:51 | NUR ---
TO LOBBY A/W BED AMBULATORY
--- NOTE | 2018-08-05 23:42 | NUR ---
PT TO BED 3.
--- NOTE | 2018-08-06 00:05 | NUR ---
38/F PRESENTS IN ED, C/O DIFFICULTY BREATHING/SOB WHILE AMBULATING, FATIGUE, WEAKNESS, AND BL UPPER ABD PAIN, X2 MONTHS BUT WORSENING RECENTLY. PT REPORTS VAGINAL BLEEDING WITH CLOTS X2 MONTHS, WORSENING. PT AOX4, GCS 15, SKIN NORMAL WARM AND DRY, RR EVEN AND UNLABORED. LUNG SOUNDS CLEAR BL. BS ACTIVE X4, ABD SOFT FLAT TENDER TO UPPER QUADRANTS. +2 ALL PERIPHERAL STRENGTH. HX FIBROIDS, ASTHMA
[2018-08-06 00:15] LABS: EOSINOPHILS # (AUTO) 0.1 K/uL (0-0.4); LYMPHOCYTES # (AUTO) 1.4 K/uL (2.5-16.5)
[2018-08-06 00:20] LABS: BASOPHILS % (AUTO) 0.2 % (0.0-2.0); EOSINOPHILS % (AUTO) 2.6 % (0.0-4.0); LYMPHOCYTES % (AUTO) 27.1 % (20.5-51.1); MEAN CORPUSCULAR HEMOGLOBIN 22 pg (27-31); MEAN CORPUSCULAR HGB CONC 31 g/dL (33-37); MEAN CORPUSCULAR VOLUME 70.7 fL (80-94); MONOCYTES # (AUTO) 0.5 K/uL (0.8-1.0); MONOCYTES % (AUTO) 10.4 % (1.7-9.3); NEUTROPHILS # (AUTO) 3.1 K/uL (1.8-7.7); NEUTROPHILS % (AUTO) 59.7 % (42.2-75.2); PLATELET COUNT (AUTO) 349 K/uL (140-450); RED BLOOD CELL COUNT(AUTO) 2.27 MIL/uL (4.20-5.40); RED CELL DISTRIBUTION WIDTH 19.9 % (11.6-13.7); WHITE BLOOD COUNT (AUTO) 5.1 K/uL (4.8-10.8)
[2018-08-06 00:33] LABS: PROTHROMBIN TIME 9.7 secs (10.8-13.4)
[2018-08-06 00:35] LABS: ALBUMIN 3.2 g/dL (3.4-5.0); ANION GAP 12.6 (8-16); CARBON DIOXIDE 24.5 mmol/L (21-32); CREATININE 0.7 mg/dL (0.6-1.3); POTASSIUM 4.1 mmol/L (3.5-5.1); TOTAL BILIRUBIN 0.1 mg/dL (0.0-1.0)
[2018-08-06 00:58] LABS: HEMATOCRIT 16.1 % (36-48)
[2018-08-06] MEDS ORDERED: MORPHINE SULFATE 4 MG/ML SYR IVP ONE (01:05)
--- NOTE | 2018-08-06 01:16 | NUR ---
PT C/O ABD PAIN. ADMINISTED MORPHINE 4MG/1ML MIXED IN 2ML NS, STARTED ADMINISTERING 1ML, PT C/O NAUSEA, MEDICATION STOPPED PER PT REQUEST.
[2018-08-06] MEDS ORDERED: LORazepam 2 MG/ML VIAL IVP PRN (01:20)
--- NOTE | 2018-08-06 01:30 | NUR ---
PT LAYING IN BED, RR EVEN AND UNLABORED. VSS, DENIES ABD PAIN. ALL NEEDS MET AT THIS TIME.
--- NOTE | 2018-08-06 01:50 | NUR ---
Patient will be admitted to care of DR ROJAS. Admited to [facility]. Will go to room 121B. Belongings list completed. Report to JEFFREY RN AT BEDSIDE.
[2018-08-06 01:55] VITALS: BP 112/77
--- NOTE | 2018-08-06 01:55 | NUR ---
ADMITTED 38F FROM ER. CAME BY MIRACLE ,DUE TO VAGINAL BLEEDING WITH LARGE BLOOD CLOTS, DIZZINESS AND SOB RELATED TO DX: ANEMIA. AWAKE,ALERT AND ORIENTED X4. ON MED- SURG AND OBSERVATION ONLY. WITH NO DISCOMFORT NOTED AT THIS TIME. HL ON THE LT AC G#20. CLEAR AND PATENT. PLAN OF CARE DISCUSSED AND VERBALIZED UNDERSTANDING. ORIENTED TO HOSPITAL ROUTINES. BED ON LOW POSITION. SIDE RAILS UP X2 . CALL LIGHT PLACED WITHIN EASY REACH. TO CALL MD TO CLARIFY ORDERS. WILL CONTINUE TO MONITOR
[2018-08-06] MEDS ORDERED: ACETAMINOPHEN 325 MG TAB PO PRN (02:40)
--- NOTE | 2018-08-06 02:50 | NUR ---
PAGED DR. ROJAS FOR FURTHER ORDERS. CALLED BACK WITH ORDER TO TRANSFUSE 3 UNITS PRBC AND TYLENOL 650 MG PO PRN FOR PAIN /FEVER.
--- NOTE | 2018-08-06 03:10 | NUR ---
PT HAD SOME SANDWICH AND JUICE. TOLERATED WELL.
--- NOTE | 2018-08-06 03:15 | NUR ---
CALLED BLOOD BANK . TALKED TO PEBBLES, SHE SAID BLOOD NOT READY YET. WILL CALL ME SOON IT IS READY.
[2018-08-06 03:48] VITALS: BP 121/77
--- NOTE | 2018-08-06 04:03 | NUR ---
IST UNIT PRBC STARTED AFTER BEEN VERIFIED WITH YARELIS DEL CID AND WITH PT . VITAL SIGNS TAKEN PRIOR TO STARTING THE BLOOD AND WILL CHECKED IT 15 MINUTES AFTER BLOOD TRANSFUSION STARTED. PT MADE AWARE ABOUT POSSIBLE REACTION FROM THE BLOOD TRANSFUSION. VERBALIZED UNDERSTANDING.
--- NOTE | 2018-08-06 05:03 | NUR ---
BLOOD STILL INFUSING. NO REACTION NOTED AT THIS TIME. WILL CONTINUE TO MONITOR.
--- NOTE | 2018-08-06 06:50 | NUR ---
IST UNIT PRBC COMPLETED WITH NO REACTION NOTED.
--- NOTE | 2018-08-06 07:05 | NUR ---
2ND UNIT PRBC STARTED AFTER VERIFIED WITH MJ,RN AND PT. VITAL SIGNS TAKEN PRIOR TO STARTING THE BLOOD. REPORT GIVEN TO AM NURSE FOR CONTINUITY OF CARE.
--- NOTE | 2018-08-06 07:06 | NUR ---
RECEIVED BED SIDE REPORT FROM GUEST EXPERIENCE SPECIALIST RN. PT A/O X4, 2ND BAG STARTED AT 0705 BY GUEST EXPERIENCE SPECIALIST RN. VS STABLE, COMPLAINS OF NO LOWER BACK PAIN, FEVER OR ITCHINESS. BLOOD AND NS RUNNING THROUGH LEFT AC 20G. PT REQUESTED NICOTINE PATCH, WILL CALL FOR ORDER.
[2018-08-06 08:00] VITALS: BP 127/76
--- NOTE | 2018-08-06 08:18 | NUR ---
PATIENT HAS BEEN SCREENED AND CATEGORIZED MODERATE NUTRITION RISK. PATIENT WILL BE SEEN WITHIN 3-5 DAYS OF ADMISSION. 08/08/18ANGELICA L[address]PEZ RD
--- NOTE | 2018-08-06 09:49 | NUR ---
MOVED PT FROM ROOM 121B TO ROOM 119A. PT REQUESTED TO MOVE ROOMS
--- NOTE | 2018-08-06 12:00 | NUR ---
VS AFTER 15 MIN STARTING 3RD BACK STABLE. PT COMPLAINS OF NO PAIN, ITCHYNESS OR FLUSHING NOTED. WILL CONTINUE TO MONITOR
--- NOTE | 2018-08-06 14:12 | NUR ---
CALLED [facility] SPOKE WITH COLBY AND REQUESTED THE [employer]PART[employer] SUPERVISOR REFERRAL PER COLBY TO FAX TO [phone] TO [facility] FAXED ALL PAPER WORK ATTENTION TO SEVERO SHELLEY AND WILL F/U
--- NOTE | 2018-08-06 14:30 | NUR ---
CALLED DR PRINCESS BAIRES'S OFFICE [phone] TO MAKE F/U APPOINTMENT ,SPOKE WITH NAVA VICK THEY ARE NO LONGER ACCEPT [facility] STARTING August AND PATIENT NEVER BEEN SEEN IN THE OFFICE UNABLE TO MAKE APPOINTMENT AT THIS TIME.
--- NOTE | 2018-08-06 15:47 | NUR ---
CALLED SEVERO LEON AT [place] [phone] REGARDING F/U APPOINTMENT WITH [facility] [facility] PER SEVER[facility] IT TAKES 72 HRS AND THEY WILL SEND A LETTER OF APPROVAL OR DENIAL TO PATIENT'S ADDRESS AND WE CAN D/C PATIENT HOME. NOTIFIED MARC SANTOYO .
[2018-08-06 16:00] VITALS: BP 119/78
--- NOTE | 2018-08-06 16:00 | NUR ---
JAYDEN LEON NOTIFIED ME THAT PT WILL BE RECEIVING AN APPROVAL OR DISAPPROVAL LETTER TO HOME FROM [facility] [employer]. NO F/U APPOINTMENT NEEDED PER JAYDEN LEON
[2018-08-06 16:15] LABS: HEMOGLOBIN 8.3 g/dL (12.0-16.0); MEAN CORPUSCULAR HEMOGLOBIN 24 pg (27-31); MEAN CORPUSCULAR HGB CONC 32 g/dL (33-37); MEAN CORPUSCULAR VOLUME 74.8 fL (80-94); PLATELET COUNT (AUTO) 329 K/uL (140-450); RED BLOOD CELL COUNT(AUTO) 3.48 MIL/uL (4.20-5.40); RED CELL DISTRIBUTION WIDTH 19.9 % (11.6-13.7); WHITE BLOOD COUNT (AUTO) 6.4 K/uL (4.8-10.8)
[2018-08-06 16:16] LABS: BASOPHILS % (AUTO) 0.5 % (0.0-2.0); EOSINOPHILS # (AUTO) 0.2 K/uL (0-0.4); EOSINOPHILS % (AUTO) 2.5 % (0.0-4.0); LYMPHOCYTES # (AUTO) 1.1 K/uL (2.5-16.5); LYMPHOCYTES % (AUTO) 17.5 % (20.5-51.1); MONOCYTES # (AUTO) 0.7 K/uL (0.8-1.0); MONOCYTES % (AUTO) 11.4 % (1.7-9.3); NEUTROPHILS # (AUTO) 4.4 K/uL (1.8-7.7); NEUTROPHILS % (AUTO) 68.1 % (42.2-75.2)
--- NOTE | 2018-08-06 16:24 | NUR ---
PT'S VS STABLE. NO POST TRANSFUSION REACTION NOTED. WILL CONTINUE TO MONITOR
--- NOTE | 2018-08-06 16:36 | NUR ---
NOTIFIED PT ABOUT APPROVAL/DISAPPROVAL LETTER TO ARRIVE TO HOME WITHIN 72 DAYS. PT VERBALIZES UNDERSTANDING. HGB 8.3 AND HCT 26
[2018-08-06] MEDS ORDERED: FERROUS GLUCONATE 324 MG TAB PO SCH (17:00)
--- NOTE | 2018-08-06 17:28 | NUR ---
PT'S 3RD UNIT OF TRANSFUSED PRBC STARTED AT 1031 AND ENDED AT 1331.
--- NOTE | 2018-08-06 18:15 | NUR ---
PT DISCHARGED. WALKED OUT OF UNIT. IV TAKEN OUT, NO BLEEDING NOTED, PRESSURE APPLIED. PT TOOK BELONGINGS WHICH INCLUDED A RED BAG AND DC INSTRUCTIONS GIVEN. RX MEDS GIVEN AND EDUCATED HER ABOUT HOW AND WHEN TO TAKE THEM. PT VERBALIZED UNDERSTANDING
[2018-08-07] MEDS ORDERED: CALCIUM CARB 600 MG TAB PO SCH (09:00)
== END 2018-08-06 18:15 | disposition home or self-care (01) ==
LOC: MED 22:41 → UNDOADMOB 08-06 01:21 → MTU 08-06 01:21 → UNDODISOB 08-06 18:15
PROVIDERS: ADMIT Internal Medicine Pulmonary Disease; ATTEND Internal Medicine Pulmonary Disease
DX: N92.0 Excessive and frequent menstruation with regular cycle (principal); D21.9 Benign neoplasm of connective and other soft tissue, unspecified; D50.9 Iron deficiency anemia, unspecified; J45.909 Unspecified asthma, uncomplicated
CPT/HCPCS: 36415; 80053; 85025; 85610; 85730; 86886; 86900; 86901; 86920; 87081; 96374; 99285; G0378; J2270; J7030; P9016

== ENCOUNTER 2022-04-27 22:59 | Emergency (ER) | payer SELFPAY ==
[~2022-04-27] VITALS: Ht 175.3 cm; Wt 82.1 kg
[2022-04-27 23:04] VITALS: BP 125/80
--- NOTE | 2022-04-27 23:07 | NUR ---
TO LOBBY A/W BED AMBULATORY
[2022-04-28 00:07] LABS: BASOPHILS % (AUTO) 0.6 % (0.0-2.0); EOSINOPHILS # (AUTO) 0.1 K/uL (0-0.4); EOSINOPHILS % (AUTO) 2.5 % (0.0-4.0); HEMATOCRIT 33.1 % (36-48); HEMOGLOBIN 11.5 g/dL (12.0-16.0); LYMPHOCYTES # (AUTO) 2.2 K/uL (2.5-16.5); LYMPHOCYTES % (AUTO) 37.2 % (20.5-51.1); MEAN CORPUSCULAR HEMOGLOBIN 30 pg (27-31); MEAN CORPUSCULAR HGB CONC 35 g/dL (33-37); MEAN CORPUSCULAR VOLUME 86.1 fL (80-94); MONOCYTES # (AUTO) 0.5 K/uL (0.8-1.0); MONOCYTES % (AUTO) 8.3 % (1.7-9.3); NEUTROPHILS % (AUTO) 51.4 % (42.2-75.2); PLATELET COUNT (AUTO) 501 K/uL (140-450); RED BLOOD CELL COUNT(AUTO) 3.84 MIL/uL (4.20-5.40); RED CELL DISTRIBUTION WIDTH 14.3 % (11.6-13.7); WHITE BLOOD COUNT (AUTO) 5.9 K/uL (4.8-10.8)
[2022-04-28 00:13] LABS: APPEARANCE,URINE CLEAR (CLEAR); BILIRUBIN,URINE 1+ (NEGATIVE); BLOOD, URINE NEGATIVE (NEGATIVE); COLOR,URINE YELLOW (YELLOW); LEUKOCYTE ESTERASE ,URINE NEGATIVE (NEGATIVE); NITRITE, URINE NEGATIVE (NEGATIVE); UGLUCOSE NEGATIVE (NEGATIVE)
[2022-04-28 00:26] LABS: ALBUMIN 4.3 g/dL (3.4-5.0); ANION GAP 13.3 (8-16); CARBON DIOXIDE 26.9 mmol/L (21-32); CREATININE 0.8 mg/dL (0.6-1.3); POTASSIUM 4.2 mmol/L (3.5-5.1); TOTAL BILIRUBIN 0.5 mg/dL (0.0-1.0)
--- NOTE | 2022-04-28 02:10 | NUR ---
PT TO BED WITH STEADY GAIT
--- NOTE | 2022-04-28 02:14 | NUR ---
ER MD AT BEDSIDE EXAMINING PATIENT
[2022-04-28] MEDS ORDERED: ONDANSETRON 4 MG ODT PO ONE (02:20)
[2022-04-28] MEDS ORDERED: LORazepam 0.5 MG TAB PO ONE (02:20)
[2022-04-28 02:50] LABS: BARBITURATE, URINE NEGATIVE ng/ml (NEG <=200); BENZODIAZEPINE, URINE NEGATIVE ng/mL (NEG <=200); CANNABINOID, URINE NEGATIVE ng/mL (NEG <=50); COCAINE, URINE NEGATIVE ng/mL (NEG <=300); OPIATE, URINE POSITIVE ng/mL (NEG <=2000); PHENCYCLIDINE SCREEN,URINE NEGATIVE ng/mL (NEG <=25)
[2022-04-28] MEDS ORDERED: ONDA-188 PO (03:11)
[2022-04-28] MEDS ORDERED: MAG-27 PO (03:11)
--- NOTE | 2022-04-28 03:27 | NUR ---
Patient discharged with ER MD aware of VS. Written and verbal after care instructions given and explained. Patient alert, oriented and verbalized understanding of instructions. Ambulatory with steady gait. All questions addressed prior to discharge. ID band removed. Patient advised to follow up with PMD. Rx of Mylanta Maximum Strength and Zofran ODT given. Patient educated on indication of medication including possible reaction and side effects. Opportunity to ask questions provided and answered.
== END 2022-04-28 03:27 | disposition home or self-care (01) ==
LOC: MED 22:59
DX: R53.1 Weakness (principal); R10.9 Unspecified abdominal pain; R63.0 Anorexia; F15.90 Other stimulant use, unspecified, uncomplicated; J45.909 Unspecified asthma, uncomplicated; Z79.899 Other long term (current) drug therapy; Z88.5 Allergy status to narcotic agent
CPT/HCPCS: 36415; 80053; 80305; 81003; 81025; 83690; 85025; 99283; Q0162